=== PATIENT | female | born 1995 | race Caucasian/White ===

== ENCOUNTER 2017-03-11 08:45 | Emergency (ER) | payer OTHER ==
[~2017-03-11] VITALS: Ht 160 cm; Wt 68.0 kg
[2017-03-11 10:05] VITALS: BP 139/82
[2017-03-11] MEDS ORDERED: IPRATROPIUM BROM 0.5 MG/2.5ML INH SOL NEB ONE (10:30)
[2017-03-11] MEDS ORDERED: ALBUTEROL SULF 2.5 MG/0.5ML(0.5%) NEB SOLN NEB ONE (10:30)
== END 2017-03-11 11:01 | disposition home or self-care (01) ==
LOC: ER 08:45
DX: R06.4 Hyperventilation (principal); R06.02 Shortness of breath
CPT/HCPCS: 94640